=== PATIENT | female | born 1980 | race African-American/Black ===

== ENCOUNTER 2022-12-23 12:08 | Emergency (ER) | payer OTHER ==
[~2022-12-23] VITALS: Ht 167.6 cm; Wt 89.0 kg
[2022-12-23 12:17] VITALS: BP 140/88; PULSE 82; RESP 19; TEMP 98; O2SAT 99
[2022-12-23 13:05] LABS: BASOPHILS % 0.9 % (0.0-2.0); EOSINOPHILS % 1.2 % (0.0-5.0); HEMATOCRIT. 37.3 % (36.0-48.0); HEMOGLOBIN. 12.8 g/dL (12.0-16.0); MEAN CORPUSCULAR VOLUME 87.3 fL (81.0-99.0); MEAN PLATELET VOLUME 10.3 fl (7.4-10.4); MONOCYTES % 6.5 % (2.0-8.0); NEUTROPHILS % 55.4 % (40.0-76.0); PLATELET 242 x1000/uL (130-400); RED BLOOD CELL COUNT 4.27 mill/uL (4.2-5.4); RED CELL DISTRIBUTION WIDTH 15.2 % (11.6-14.6)
[2022-12-23 13:06] LABS: CHLORIDE 109 mEq/L (98-107)
[2022-12-23 13:19] LABS: B-HCG QUANTITATIVE < 1 mIU/mL (<3)
[2022-12-23 15:46] LABS: CLARITY URINE CLOUDY (CLEAR); COLOR URINE DARK YELLOW (YELLOW); KETONES URINE TRACE (NEGATIVE); LEUKOCYTE ESTERASE URINE TRACE (NEGATIVE); NITRITE URINE NEGATIVE (NEGATIVE); OCCULT BLOOD URINE 3+ (NEGATIVE); PH URINE 7.5 (4.5-8.0); PROTEIN URINE TRACE (NEGATIVE); SPECIFIC GRAVITY URINE 1.029 (1.005-1.030)
[2022-12-23] MEDS ORDERED: TRAM50TA3 MT (16:27)
[2022-12-23] MEDS ORDERED: NITR-87 MT (16:54)
== END 2022-12-23 17:47 | disposition home or self-care (01) ==
LOC: ER 12:23
DX: N93.8 Other specified abnormal uterine and vaginal bleeding (principal); Z98.51 Tubal ligation status; Z98.890 Other specified postprocedural states
CPT/HCPCS: 36415; 76830; 76856; 80053; 81003; 84702; 85025; 86850; 86900; 99284